=== PATIENT | female | born 1965 | race Caucasian/White ===

== ENCOUNTER 2016-07-11 11:12 | Inpatient (IN) | payer SELFPAY ==
[~2016-07-11] VITALS: Ht 162.6 cm; Wt 117.0 kg
[~2016-07-11 11:12] MED LIST: CETI10CA PO; DULO60CA6 PO; MONT10TA9 PO
[2016-07-11 12:45] VITALS: BP 150/91
[2016-07-11] MEDS ORDERED: FLUT100D IH (14:09)
[2016-07-11] MEDS ORDERED: CITA10TA4 PO (14:10)
[2016-07-11] MEDS ORDERED: XOPENEX HFA15 GM IH (14:10)
[2016-07-11] MEDS ORDERED: ALBU8.5H8 INH (14:10)
[2016-07-11] MEDS ORDERED: ALBU2.5V5 NEB (14:11)
[2016-07-11] MEDS ORDERED: CHOL500016 PO (14:12)
[2016-07-11 14:19] LABS: BILIRUBIN,URINE NEG (NEG); CLARITY,URINE CLEAR; COLOR,URINE YELLOW; GLUCOSE,URINE NEG (NEG)
[2016-07-11 14:20] LABS: BACTERIA,URINE FEW /HPF (0-FEW); NITRITE,URINE NEG (NEG); RBC,URINE RARE /HPF (0-2); SQUAMOUS EPITHELIAL CELL,UR OCC /LPF; UROBILINOGEN,URINE 0.2 mg/dL (0.2 mg/dL)
[2016-07-11 14:40] LABS: BASO # 0.2 x10^3/uL (0.0-0.2); BASO % 1 % (0-3); EOS # 0.1 x10^3/uL (0.0-0.7); EOS % 1 % (0-3); HEMATOCRIT 41.2 % (36.0-47.0); HEMOGLOBIN 13.6 g/dL (12.0-15.5); LYMPH # 4.1 x10^3/uL (1.0-4.8); LYMPH % 24 % (24-48); MEAN CORPUSCULAR HEMOGLOBIN 28 pg (25-35); MEAN CORPUSCULAR HGB CONC 33 g/dL (31-37); MEAN CORPUSCULAR VOLUME 85 fL (79-100); MONO # 0.8 x10^3/uL (0.0-1.1); MONO % 5 % (0-9); NEUT % 70 % (31-73); PLATELET COUNT 378 x10^3/uL (140-400); RED BLOOD COUNT 4.83 x10^6/uL (3.50-5.40); RED CELL DISTRIBUTION WIDTH 14.2 % (11.5-14.5); WHITE BLOOD COUNT 17.2 x10^3/uL (4.0-11.0)
[2016-07-11 14:49] VITALS: BP 129/79
[2016-07-11 14:54] LABS: ALBUMIN 3.4 g/dL (3.4-5.0); ALBUMIN/GLOBULIN RATIO 0.8 (1.0-1.7); ALK PHOS 72 U/L (46-116); ALT (SGPT) 25 U/L (14-59); ANION GAP 9 (6-14); AST (SGOT) < 5 U/L (15-37); BLOOD UREA NITROGEN 13 mg/dL (7-20); BUN/CREATININE RATIO 13 (6-20); CALCIUM 8.5 mg/dL (8.5-10.1); CARBON DIOXIDE 26 mmol/L (21-32); CHLORIDE 105 mmol/L (98-107); GFR 58.9; GLUCOSE 128 mg/dL (70-99); POTASSIUM 3.3 mmol/L (3.5-5.1); SODIUM 140 mmol/L (136-145); TOTAL BILIRUBIN 0.2 mg/dL (0.2-1.0); TOTAL PROTEIN 7.6 g/dL (6.4-8.2)
[2016-07-11] MEDS: methylPREDNISolone SOD SUCC PF 125 MG/2 ML VIAL. IV SCH ×2 (14:56→22:26)
[2016-07-11] MEDS: IPRATRPIUM/ALBUTEROL 0.5/2.5MG 3 ML NEBU. NEB SCH ×2 (16:10→20:38)
--- NOTE | 2016-07-11 16:20 | RAD ---
CT chest without IV contrast History: Shortness of breath, pneumonia. Comparison: No comparison chest CT. Technique: Helical CT of the chest was performed without intravenous contrast. Axial, sagittal, and coronal reconstructions were obtained. One or more of the following individualized dose reduction techniques were utilized for the study: Automated exposure control Adjustment of mA and/or kV according to patient's size Use of iterative reconstruction technique. Findings: Thyroid is symmetric. Trachea and mainstem bronchi appear patent. No mediastinal lymphadenopathy is seen. Thoracic aorta is without evidence of dissection. Heart and pericardium are unremarkable. No pneumothorax or pleural effusion is seen. No acute airspace disease is identified. No pulmonary masses are seen. Images of the upper abdomen demonstrate cholecystectomy clips.. Impression: No acute abnormality identified in the chest. Unremarkable CT of the chest.
[2016-07-11] MEDS ORDERED: IV NORMAL SALINE 250ML 250 ML ONE (16:26)
[2016-07-11 20:03] VITALS: BP 132/72
[2016-07-11 20:37] LABS: % LYMPHS 25 % (24-48); % MONOS 4 % (0-10); % SEGS 71 % (35-66)
[2016-07-11 20:38] LABS: PLT ESTIMATE ADEQUATE (ADEQUATE)
[2016-07-11 20:39] LABS: OVALOCYTES OCC; SCHISTOCYTES OCC; TOXIC GRANULATION SLIGHT
[2016-07-11 22:47] VITALS: BP 126/75
[2016-07-12] MEDS: IPRATRPIUM/ALBUTEROL 0.5/2.5MG 3 ML NEBU. NEB SCH ×2 (04:52→09:47)
[2016-07-12 05:18] VITALS: BP 117/72
[2016-07-12] MEDS: methylPREDNISolone SOD SUCC PF 125 MG/2 ML VIAL. IV SCH (05:32)
[2016-07-12 09:47] LABS: BASO % 0 % (0-3); EOS % 0 % (0-3); HEMOGLOBIN 13.4 g/dL (12.0-15.5); LYMPH # 1.1 x10^3/uL (1.0-4.8); LYMPH % 6 % (24-48); MEAN CORPUSCULAR HEMOGLOBIN 28 pg (25-35); MEAN CORPUSCULAR HGB CONC 33 g/dL (31-37); MEAN CORPUSCULAR VOLUME 85 fL (79-100); MONO # 0.2 x10^3/uL (0.0-1.1); MONO % 1 % (0-9); NEUT # 16.8 x10^3uL (1.8-7.7); NEUT % 93 % (31-73); PLATELET COUNT 389 x10^3/uL (140-400); RED BLOOD COUNT 4.81 x10^6/uL (3.50-5.40); RED CELL DISTRIBUTION WIDTH 14.3 % (11.5-14.5); WHITE BLOOD COUNT 18.2 x10^3/uL (4.0-11.0)
[2016-07-12 09:48] LABS: CALCIUM 9.2 mg/dL (8.5-10.1); CREATININE 1.2 mg/dL (0.6-1.0); GFR 47.7; POTASSIUM 4.4 mmol/L (3.5-5.1)
[2016-07-12 10:28] VITALS: BP 121/76
[2016-07-12] MEDS ORDERED: IPRA3AMP NEB (11:30)
[2016-07-12] MEDS ORDERED: METH4TAB2 PO (11:30)
--- NOTE | 2016-07-12 12:31 | NUR ---
Discharge Note: [facility] Discharge instructions and discharge home medications reviewed with Patient and a copy given. All questions have been answered and understanding verbalized. The following instructions and handouts were given: MEDICATIONS, FOLLOW UP INSTRUCTIONS, AND EDUCATIONAL HANDOUTS GIVEN. Discontinued lines and drains: PERIPHERAL IV DISCONTINUED WITH NO COMPLICATIONS. Patient discharged to HOME with FAMILY via AMBULATION.
[2016-07-12] MEDS ORDERED: methylPREDNISolone SOD SUCC PF 40 MG/ML VIAL. IV SCH (14:00)
== END 2016-07-12 12:34 | disposition home or self-care (01) | DRG 871 ==
LOC: 1 SOUTH 12:28
PROVIDERS: ADMIT Family Medicine; ATTEND Family Medicine
DX: A41.9 Sepsis, unspecified organism (principal); J18.9 Pneumonia, unspecified organism; F15.90 Other stimulant use, unspecified, uncomplicated; J45.998 Other asthma; Z90.710 Acquired absence of both cervix and uterus
CPT/HCPCS: 36415; 71250; 80048; 80053; 81001; 83605; 85007; 85027; 85379; 87040; 94250; 94640; J0696; J1956; J2930; J7050; J7620

== ENCOUNTER 2021-06-28 22:05 | Emergency (ER) | payer BC ==
[~2021-06-28] VITALS: Ht 162.6 cm; Wt 123.6 kg
[~2021-06-28 22:05] MED LIST changes: +ALBU2.5V5 NEB; +ALBU2.5V8 INH; +CHOL500016 PO; +CITA10TA5 PO; -DULO60CA6 PO; +DULO60CA7 PO; +FLUT100D2 IH; +IPRA3AMP29 NEB; +METH4TAB2 PO; +MONT10TA80 PO; -MONT10TA9 PO; +XOPENEX HFA15 GM IH
[2021-06-28 22:16] VITALS: BP 187/110
--- NOTE | 2021-06-28 23:15 | PHYS DOC ---
Past History Past Medical History: Anxiety, Asthma, Bronchitis, Cancer, Depression, Hypertension, IBS, Other Additional Past Medical Histor: cervical cancer Past Surgical History: Cholecystectomy, , Hysterectomy, Other Smoking: Non-smoker Alcohol Use: None Drug Use: None General Adult EDM: Chief Complaint: SHORTNESS OF BREATH HPI: HPI: ".. I am allergic to everyting.. Asthma bad with this weather.. I am on zithromax... but no steroid yet...." " Usually when I get this bad I require steroids..." Patient is a 56 year old female who presents with above hx and asthma exacerbation. Patient has history of multiple asthma exacerbations and bronchitis. Patient states she has had recent asthma exacerbation last couple days. Did follow-up with her primary care Dr. Link's office. Was started on Zithromax. Patient states however she was not started on steroids as yet. Patient currently having audible wheezing. Had lifetime issues with chronic asthma, reactive airway, and multiple allergies. Patient currently following her asthma plans. Patient denies any history of intubations for acute asthma exacerbations but has had several admissions for asthma exacerbation. Patient currently maintaining sats above 96%. Patient has significant past medical history of chronic bronchitis and bronchial asthma, cervical cancer, anxiety, hypertension, extensive sensitivities to drugs and environmental exposures. Patient had past surgical history of hysterectomy, dermoid cyst removal, laparoscopic evaluations, C-sections. Patient denies any recent travel or specific ill contacts. Patient only follows with Dr. Link. Patient seen in fast track B. Review of Systems: Review of Systems: Constitutional: Denies fever or chills Eyes: Denies change in visual acuity HENT: Denies nasal congestion or sore throat Respiratory: Complains of cough coughing spasms and asthma exacerbation Cardiovascular: Denies chest pain or edema GI: Denies abdominal pain, nausea, vomiting, bloody stools or diarrhea : Denies dysuria Musculoskeletal: Denies back pain or joint pain Integument: Denies rash Neurologic: Denies headache, focal weakness or sensory changes Endocrine: Denies polyuria or polydipsia Lymphatic: Denies swollen glands Psychiatric: Denies depression or anxiety Family History: Family History: Father of a cerebral aneurysm 66 and has 1 younger sister that is an alcoholic Current Medications: Current Meds: See nursing for home meds Allergies: Allergies: Allergies Coded Allergies Type Severity Reaction Last Updated Verified Horse/Equine Containing Products Allergy Severe 06/28/21 Yes egg Allergy Severe 06/28/21 No milk Allergy Severe 06/28/21 Yes peanut Allergy Severe 06/28/21 No acetaminophen Allergy Intermediate 06/28/21 Yes adhesive Allergy Intermediate 06/28/21 Yes bacitracin Allergy Intermediate 06/28/21 Yes corn Allergy Intermediate 06/28/21 Yes neomycin Allergy Intermediate 06/28/21 Yes oxycodone Allergy Intermediate 06/28/21 Yes polymyxin B Allergy Intermediate 06/28/21 Yes Physical Exam: PE: Constitutional: Moderate acute distress, non-toxic appearance. [] HENT: Normocephalic, atraumatic, bilateral external ears normal, oropharynx moist, no oral exudates, nose swollen turbinates and clear rhinorrhea. Some polyps. Eyes: PERRLA, EOMI, conjunctiva normal, no discharge. [] Neck: Normal range of motion, no tenderness, supple, no stridor. [] Cardiovascular: Tachycardia heart rate regular rhythm, no murmur [] Lungs & Thorax: Bilateral breath sounds at apex with scattered wheezing on auscultation [] does occasionally have coughing spasms. Abdomen: Bowel sounds normal, soft, no tenderness, no masses, no pulsatile masses. Old surgery scars. Obese. Skin: Warm, dry, no erythema, no rash. [] Back: No tenderness, no CVA tenderness. [] Extremities: No tenderness, no cyanosis, no clubbing, ROM intact, no edema. [] Neurologic: Alert and oriented X 3, Psychologic: Affect anxious, judgement normal, mood normal. [] Current Patient Data: Vital Signs: Vital Signs Date Time Temp Pulse Resp B/P (MAP) Pulse Ox O2 Delivery O2 Flow Rate FiO2 06/28/21 22:16 98.8 93 18 187/110 (135) 96 EKG: EKG: Deferred by patient [] Radiology/Procedures: Radiology/Procedures: Deferred by patient [] Heart Score: C/O Chest Pain: N/A Risk Factors: Risk Factors: DM, Current or recent (<one month) smoker, HTN, HLP, family history of CAD, obesity. Risk Scores: Score 0 - 3: 2.5% MACE over next 6 weeks - Discharge Home Score 4 - 6: 20.3% MACE over next 6 weeks - Admit for Clinical Observation Score 7 - 10: 72.7% MACE over next 6 weeks - Early Invasive Strategies Course & Med Decision Making: Course & Med Decision Making Pertinent Labs and Imaging studies reviewed. (See chart for details) Patient continue meds as previous directed. Patient to continue her asthma and bronchitis treatment as per her prior asthma rescue plans. Patient was given a Depo Benadryl shot of 40 mg IM. Patient to review her hypertension findings in the ED with her primary care. Document peak blood pressures 3 times a day a.m. noon and p.m. and show this record to Dr. Link. Present or call her primary in the morning if no improvement. Explained to patient that the Depo-Medrol IM does not require a taper. Patient to continue her Zithromax. Return if any concerns. Impression: 1. Asthma exacerbation 2. Bronchitis 3. Accelerated hypertension-- [] Chris Disclaimer: Chris Disclaimer: This electronic medical record was generated, in whole or in part, using a voice recognition dictation system. Departure Departure: Referrals: RICCARDO LINK MD (PCP) Chris Disclaimer This chart was dictated in whole or in part using Voice Recognition software in a busy, high-work load, and often noisy Emergency Department environment. It may contain unintended and wholly unrecognized errors or omissions. DIANNA العلي MD Jun 28, 2021 23:15
[2021-06-28] MEDS ORDERED: methylPREDNISolone ACETATE 40 MG/ML VIAL. IM ONE (23:30)
== END 2021-06-28 23:42 | disposition home or self-care (01) ==
LOC: ER 22:05
DX: J45.901 Unspecified asthma with (acute) exacerbation (principal); I10 Essential (primary) hypertension; Z91.012 Allergy to eggs; Z91.011 Allergy to milk products; Z91.010 Allergy to peanuts; Z88.1 Allergy status to other antibiotic agents; Z91.018 Allergy to other foods; Z88.8 Allergy status to other drugs, medicaments and biological substances
CPT/HCPCS: 96372; 99283; J1030